=== PATIENT | female | born 1955 | race Caucasian/White ===

== ENCOUNTER 2023-03-24 11:58 | Emergency (ER) | payer OTHER, MEDICARE ==
[2023-03-24] MEDS ORDERED: Lidocaine 1% with EPINEPHrine 1:100,000 50 ML MDV INJECT ONE (14:23)
[2023-03-24] MEDS ORDERED: Bacitracin Oint 1 GM U/D Packet TOP ONE ×2 (14:23→16:03)
[2023-03-24] MEDS ORDERED: Diphtheria,Pertussis(Acell),Tetanus Vaccine 0.5 ML Syringe IM ONE (16:02)
== END 2023-03-24 16:54 | disposition home or self-care (01) ==
LOC: JP.ED 11:58
DX: S81.811A Laceration without foreign body, right lower leg, initial encounter (principal); Z79.899 Other long term (current) drug therapy; V87.8XXA Person injured in other specified noncollision transport accidents involving motor vehicle (traffic), initial encounter; Y92.410 Unspecified street and highway as the place of occurrence of the external cause
CPT/HCPCS: 12002; 73060-26-LT; 73060-LT; 73090-26-LT; 73090-LT; 90471; 90715; 99283-25